=== PATIENT | male | born 1955 | race Caucasian/White ===

== ENCOUNTER 2017-02-03 06:03 | Day surgery (SDC) | payer OTHER ==
[2017-02-03] MEDS ORDERED: LACTATED RINGERS 1,000 ML ONE (06:45)
[2017-02-03] MEDS ORDERED: PROPOFOL 200 MG/20 ML VIAL IV ONE (07:00)
--- NOTE | 2017-02-03 08:14 | OP ---
DATE OF PROCEDURE: 02/03/17 PREOPERATIVE DIAGNOSIS: 1. Colon cancer screen. POSTOPERATIVE DIAGNOSIS: 1. Diverticulosis of the sigmoid colon. PROCEDURE: 1. Colonoscopy. SURGEON: Fran Mancilla MD. ANESTHESIA: MAC by Dm Nunez CRNA. ESTIMATED BLOOD LOSS: None. COMPLICATIONS: None apparent. TECHNIQUE: After informed consent was obtained from the patient, the patient was taken to the Endoscopy Suite and put in the left lateral decubitus position. After adequate IV sedation was obtained, a digital rectal exam was performed which revealed normal sphincter tone, no intraluminal masses, and a smooth, 1+, anodular prostate. The colonoscope was then passed with good visualization all the way through the colon. The bowel prep was good. There was a moderately large amount of liquid stool and we suctioned out about 150 mL of liquid from the colon. I got a good look of the entire colon after that. The cecum was identified by the presence of the typical landmarks. The scope was then withdrawn slowly over the next 8 minutes and no polyps or other masses were seen. Scattered diverticula were noted in the sigmoid region. The scope was removed. The patient tolerated the procedure well. The patient was transported to the outpatient area in good condition. He will be on a high fiber diet and followup with me as needed. Need colon screen should be in 10 years. #[id number] [facility]
[2017-02-03 09:18] VITALS: BP 118/70; TEMP 97; O2SAT 98
== END 2017-02-03 08:40 | disposition home or self-care (01) ==
LOC: AMB 06:03
PROVIDERS: ATTEND Family Medicine
DX: Z12.11 Encounter for screening for malignant neoplasm of colon (principal); K57.30 Diverticulosis of large intestine without perforation or abscess without bleeding; K21.9 Gastro-esophageal reflux disease without esophagitis; G47.33 Obstructive sleep apnea (adult) (pediatric); N40.0 Benign prostatic hyperplasia without lower urinary tract symptoms; F41.8 Other specified anxiety disorders; Z96.643 Presence of artificial hip joint, bilateral; Z88.5 Allergy status to narcotic agent; Z88.0 Allergy status to penicillin; Z79.899 Other long term (current) drug therapy
CPT/HCPCS: 00810; 45378; J3490; J7120

== ENCOUNTER 2020-04-21 05:29 | Day surgery (SDC) | payer MEDICARE, OTHER ==
[2020-04-21] MEDS ORDERED: TROP1%/CYCLOPEN 1%/PHENYL 2.5% DROPS OPHTH ONE (05:30)
[2020-04-21] MEDS ORDERED: MIDAZOLAM INJ 2 MG/2 ML VIAL ONE (07:00)
[2020-04-21] MEDS ORDERED: SODIUM CHLORIDE 0.9% (FLUSH) 10 ML SYG ONE (10:57)
[2020-04-21] MEDS ORDERED: PROPARACAINE 0.5% OPHTH SOL 15 ML BTTL LEFT_EYE ONE (10:57)
[2020-04-21] MEDS ORDERED: LIDOCAINE 1% MPF 2 ML VIAL INJ ONE (11:08)
[2020-04-21] MEDS ORDERED: MOXIFLOXACIN HCL (OPHTH) 1 DROP DROPS LEFT_EYE ONE ×2 (11:08→11:30)
[2020-04-21] MEDS ORDERED: DEXAMETHASONE 0.1% OPHTH SOL 1 DROP LEFT_EYE ONE ×2 (11:08→11:30)
[2020-04-21] MEDS ORDERED: TOBRAMYCIN SULF 0.3 % OPHT SOL 1 DROP LEFT_EYE ONE ×2 (11:08→11:30)
[2020-04-21] MEDS ORDERED: BRIMONIDINE 0.2% OPHTH DROPS LEFT_EYE ONE ×2 (11:09→11:30)
== END 2020-04-21 12:07 | disposition home or self-care (01) ==
LOC: AMB 05:29
PROVIDERS: ATTEND Ophthalmology
DX: H25.12 Age-related nuclear cataract, left eye (principal); Z88.0 Allergy status to penicillin
CPT/HCPCS: 00142; 66984; 66999; A4216; J2250; V2788